=== PATIENT | female | born 1960 | race African-American/Black ===

== ENCOUNTER 2017-06-03 19:47 | Inpatient (IN) | payer BC ==
[~2017-06-03] VITALS: Ht 162.6 cm; Wt 68.9 kg
--- NOTE | ~2017-06-03 | O ---
[facility] [place] [address] OPERATIVE REPORT Name: YANET FLOR Room #: [facility] IN M.R.#: [id number] Admission: 06/03/17 Attend Phys: Iggy Deal DO Discharge: Date of : 64 Report #: [id number] THIS REPORT FOR: //name// CC: Iggy Justin DATE OF SERVICE: 06/05/2017 PREOPERATIVE DIAGNOSIS: Complex comminuted intraarticular fracture, left distal humerus. POSTOPERATIVE DIAGNOSIS: Complex comminuted intraarticular fracture, left distal humerus. PROCEDURE: Open reduction and internal fixation left distal humerus fracture with a complex posterior approach utilizing olecranon osteotomy. SURGEON: Ty Boone MD. INDICATIONS: This 56-year-old female fell while roller skating injuring the left elbow. This resulted in a badly comminuted intra-articular fracture of the left distal humerus. The fracture pattern is a T-shaped intercondylar, extending into the mid portion of the joint with an avulsion of the medial epicondyle and extension proximally about 4 cm above the metaphyseal region. I have explained the difficult nature of this fracture pattern and various treatment options. The patient and her understand well and wish to go ahead with surgical repair. I did explain that she certainly is at risk for perioperative problems which may include a neurologic or vascular compromise and certainly some post-traumatic arthrofibrosis or degenerative arthritis involving the joint. DESCRIPTION OF PROCEDURE: The patient was taken to the operating room where she was placed under general anesthesia. Prophylactic intravenous antibiotics were administered. The left elbow, arm and hand were meticulously prepped and draped. An arm tourniquet was placed high on the arm and inflated to 225 mmHg. A posterior longitudinal skin incision was made. This was carried through fascia to expose the olecranon and the triceps. An olecranon osteotomy was performed. The triceps was elevated, making a small incision at the medial and lateral borders and turning the triceps proximally to allow good visualization of the posterior aspect of the joint. The distal humerus was found to be fractured in a significantly comminuted fashion. There was a separation of the medial and lateral condyles and some comminution in the mid intraarticular portion. This area was debrided removing the loose irregular unstable fragments. This did allow a satisfactory reapproximation of the medial and lateral condyles reconstituting the joint surface in a satisfactory fashion. [address] [address] OPERATIVE REPORT Name: YANET FLOR Room #: 402-P [facility] IN M.R.#: [id number] Admission: 06/03/17 Attend Phys: Iggy Deal DO Discharge: Date of : 64 Report #: [id number] This was held temporarily with 2 long smooth K wires. The more proximal supracondylar fracture was also somewhat comminuted with the medial epicondyle and ridge being a separate small fragment. This made realignment and stabilization difficult. Nevertheless, satisfactory realignment was established, and a lateral Synthes plate was applied along the posterolateral border of the distal humerus using initially several smooth K wires for initial fixation. These were then traded out for screws and satisfactory stability and alignment were then established. This included six screws in the plate, with the most distal screw engaging across to the medial condyle and the more proximal 3 screws engaging both the medial and lateral fragments of the shaft fracture. The middle two screws engaged only the lateral humeral ridge, but had a very good purchase in that area. Another screw was placed distally just outside the joint, traversing from lateral to medial condyle to further reinforce and strengthen the joint surface. C-arm views were obtained and revealed satisfactory position of the plate and screws and satisfactory position of the bony architecture. Range of motion and stability were assessed and felt to be satisfactory. There did not seem to be any penetration into the joint, and there was no significant joint crepitus with gentle range of motion. At this point, the olecranon osteotomy was then repaired using two 4.0 cannulated screws and one [id number] tension band wire using a 20-gauge wire. This resulted in anatomic realignment of the olecranon osteotomy and satisfactory fixation. The tourniquet was deflated after a total tourniquet time of 75 minutes. The wound was copiously irrigated. Good hemostasis was obtained. The fascia was repaired with multiple 0 Vicryl sutures. The subcutaneous tissues were closed with 0 Monocryl. The skin was closed with skin myra. Sterile dressing and plaster splint were applied. The patient was awakened and returned to recovery room in satisfactory condition. <ELECTRONICALLY SIGNED> By: Ty Boone MD 06/05/17 1825 [id number] [id number] Ty Boone MD /nt
--- NOTE | ~2017-06-03 | HC ---
[facility] [place] [place] [address] CONSULTATION Name: YANET FLOR Room #: [facility]- ADM IN M.R.#: [id number] Admission: 06/03/17 Attend Phys: Iggy Deal DO Discharge: Date of : 64 Report #: [id number] THIS REPORT FOR: //name// CC: Iggy Justin CHIEF COMPLAINT: Left distal humerus supracondylar fracture. HISTORY OF PRESENT ILLNESS: This active 56-year-old female fell hard on the left elbow resulting in a complex comminuted intraarticular and supracondylar fracture to the left distal humerus. She sustained no other injuries. She was evaluated in the Emergency Room. The skin and soft tissues were found to be intact. She seems to have intact neurologic status. The fracture; however, is comminuted, displaced and unstable. She has been admitted for further evaluation and surgical management. PHYSICAL EXAMINATION: At the time of my evaluation, she is alert and oriented. She is accompanied by her . She is frustrated and moderately uncomfortable with regard to left elbow. She denies any other areas of injury. She denies any other significant medical problems aside from hypertension and thyroid disease. She notes she is fit and active. She seems to have good movement and strength involving the neck, back and right upper extremity. The lower back, pelvis and both lower extremities also demonstrate satisfactory alignment and range of motion without discomfort. The left upper extremity is well supported in a long arm splint. She has discomfort with any attempted movement about the elbow. The wrist and hand reveal moderate swelling and some vague generalized discomfort. She notes some mild dysesthesia, but in general seems to have satisfactory sensation distally. She is weak with dorsiflexion of the hand and fingers, but can demonstrate movement suggesting radial nerve function is intact at this point, but movement and strength are somewhat impaired, probably due to swelling and pain. Vascular status appears to be satisfactory. X-rays of left elbow reveal a comminuted T-shaped fracture of the supracondylar region extending down into the joint. There is also some comminution medially and laterally. The proximal ulna and radial head appeared to be intact and satisfactorily aligned. IMPRESSION AND PLAN: I have discussed at some length with the patient the nature of the fracture and treatment options. I have explained that this is a rather badly comminuted intra-articular and displaced fracture, which will certainly make alignment and fixation and stability difficult. I have also explained she is at some risk for neurologic or vascular problems given this fracture and surgical exposure. She and her understand well. They would like to go ahead with surgical repair. I think we can possibly proceed tomorrow on 06/05/2017 pending OR availability. We will order the appropriate [address] [address] CONSULTATION Name: YANET FLOR Room #: 402-P [facility] IN M.R.#: [id number] Admission: 06/03/17 Attend Phys: Iggy Deal DO Discharge: Date of : 64 Report #: [id number] distal humeral plates for fixation. We will plan to proceed with surgical repair tomorrow. <ELECTRONICALLY SIGNED> By: Ty Boone MD 06/05/17 1352 1112 [id number] Ty Boone MD /nt
--- NOTE | ~2017-06-03 | EKG ---
[place] [address] [facility] [place] [address] ELECTROCARDIOGRAM REPORT Name: YANET FLOR Room #: 402-P ADM IN M.R.#: [id number] Admission: 06/03/17 Attend Phys: Iggy Deal DO Discharge: Date of : 64 Report #: [id number] THIS REPORT FOR: //name// [facility] ED Test Date: 2017-06-03 Test Time: 22:00:18 Pat Name: YANET FLOR Department: Room: 402 Gender: F Sales Process Manager: jannie : 1960 Requested By: Daryl Matias Order Number: [id number] MD: Mansoor Isidro Measurements Intervals [place] Rate: 101 P: 63 AL: 182 QRS: -3 QRSD: 108 T: -14 QT: 400 QTc: 519 Interpretive Statements Sinus tachycardia Probable left atrial enlargement RSR' in V1 or V2, right VCD or RVH Borderline T abnormalities, diffuse leads Prolonged QT interval Baseline wander in lead(s) I,III,aVL,V6 No previous ECG available for comparison Electronically Signed On 06-04-2017 9:53:30 [employer] by Mansoor Isidro [email or web address] <ELECTRONICALLY SIGNED> By: Mansoor Isidro MD 06/04/17 0953 99 99 Mansoor Isidro MD /EPI
[2017-06-03 19:48] VITALS: BP 168/122
[2017-06-03] MEDS ORDERED: SYNTHROID112 MCG PO (19:50)
[2017-06-03] MEDS ORDERED: TELMISARTAN40 MG PO (20:59)
[2017-06-03] MEDS ORDERED: NORVASC5 MG PO (21:02)
[2017-06-03 21:17] LABS: HEMATOCRIT 35.4 % (37.0-47.0); HEMOGLOBIN 11.8 gm/dL (12.0-15.0); MCH 29.9 pg (26.0-34.0); MCHC 33.2 g/dL (28.0-37.0); MCV 89.8 fL (80.0-100.0); RBC 3.94 mil/uL (4.20-5.00); RDW 13.9 % (10.5-14.5); WBC 11.3 thou/uL (4.0-11.0)
[2017-06-03 21:21] LABS: CALCIUM 9.3 mg/dL (8.5-10.1); CREATININE 0.7 mg/dL (0.6-1.0); POTASSIUM 3.4 mmol/L (3.5-5.1)
[2017-06-03 21:30] LABS: APTT 23.9 Seconds (24.5-32.8); PROTIME 10.3 Seconds (9.3-11.4)
[2017-06-03 22:28] VITALS: BP 131/71
[2017-06-04 03:54] VITALS: BP 125/83
[2017-06-04 03:57] LABS: HEMATOCRIT 33.2 % (37.0-47.0); HEMOGLOBIN 11.2 gm/dL (12.0-15.0); MCH 30.2 pg (26.0-34.0); MCHC 33.8 g/dL (28.0-37.0); MCV 89.6 fL (80.0-100.0); RBC 3.7 mil/uL (4.20-5.00); RDW 14.1 % (10.5-14.5); WBC 8.1 thou/uL (4.0-11.0)
[2017-06-04 04:22] LABS: CALCIUM 8.8 mg/dL (8.5-10.1); CREATININE 0.8 mg/dL (0.6-1.0); POTASSIUM 3.5 mmol/L (3.5-5.1)
[2017-06-04 07:07] VITALS: BP 113/74
[2017-06-04 20:00] VITALS: BP 116/67
[2017-06-05 04:00] VITALS: BP 120/73
[2017-06-05 08:00] VITALS: BP 128/56
[2017-06-05 09:34] VITALS: BP 122/75
[2017-06-05 16:33] VITALS: BP 149/93
[2017-06-05 18:51] VITALS: BP 149/93
== END 2017-06-05 19:32 | disposition home or self-care (01) | DRG 494 ==
LOC: ER 19:47 → EROBS 21:01 → 4N 21:01
PROVIDERS: Emergency Medicine; Nurse Practitioner Family
PROC: 0PSG04Z Reposition Left Humeral Shaft with Internal Fixation Device, Open Approach (ICD-10-PCS; principal; 2017-06-05)
DX: S42.412A Displaced simple supracondylar fracture without intercondylar fracture of left humerus, initial encounter for closed fracture (principal); S42.462A Displaced fracture of medial condyle of left humerus, initial encounter for closed fracture; I10 Essential (primary) hypertension; E03.9 Hypothyroidism, unspecified; W18.39XA Other fall on same level, initial encounter; Y93.51 Activity, roller skating (inline) and skateboarding; Y92.89 Other specified places as the place of occurrence of the external cause; Y99.8 Other external cause status; Z79.899 Other long term (current) drug therapy
CPT/HCPCS: 10091; 50010; 50101; 50386; 50417; 51122; 51412; 51739; 55430; 56525; 56667; 62110; 62900; 70005